=== PATIENT | male | born 1970 | race Caucasian/White ===

== ENCOUNTER 2017-07-03 06:10 | Emergency (ER) | payer BC ==
[~2017-07-03] VITALS: Ht 175.3 cm; Wt 102.4 kg
[~2017-07-03 06:10] MED LIST: ADVIL,NUPRIN,M200 MG PO; ALEVE220 MG PO; ATENOLOL50 MG PO; BACK & BODY PA1 EACH PO; CHERATUSSIN AC473 ML PO; CLONIDINE HCL0.1 MG PO; FERROUS SULFAT324 M1 PO; GOODY S HEADACHE PO; HYDROCODONE; LISINOPRIL20 MG PO; MOTRIN800 MG PO; PANTOPRAZOLE SO40 MG PO; PERCOCET 5/31 TABLET PO; ZITHROMAX Z-PA250 MG PO
[2017-07-03 07:05] LABS: APPEARANCE CLEAR ((CLEAR)); BILIRUBIN NEGATIVE; BLOOD NEGATIVE; COLOR YELLOW ((YELLOW)); GLUCOSE (STRIP) NEGATIVE; KETONES NEGATIVE; LEUKOCYTES NEGATIVE; NITRITE NEGATIVE; PROTEIN (STRIP) NEGATIVE; SPECIFIC GRAVITY 1.021 (1.000-1.030); UCUL ADDED? NO
[2017-07-03 07:36] LABS: HEMATOCRIT 46.7 % (38.0-50.0); HEMOGLOBIN 15.4 G/DL (12.5-16.6); MCH 27.5 PG (29.0-34.0); MCV 83.5 FL (86-99); PLATELET COUNT 223 K/uL (156-360); RBC DIS.WIDTH-CV 14.6 % (11.8-14.6); RBC DIS.WIDTH-SD 44.6 % (39-53); RED BLOOD COUNT 5.59 M/uL (4.00-5.50); WHITE BLOOD COUNT 6.1 K/uL (4.1-10.2)
[2017-07-03] MEDS ORDERED: FLEXERIL10 MG PO (07:46)
[2017-07-03] MEDS ORDERED: MOTRIN800 MG PO (07:46)
[2017-07-03] MEDS ORDERED: LIDODERM 5% P1 PATCH TD (07:46)
[2017-07-03 07:49] LABS: CHLORIDE 105 mEq/L (99-109); POTASSIUM 4.4 mEq/L (3.7-5.4); SODIUM 140 mEq/L (136-147)
[2017-07-03 07:50] LABS: GLUCOSE 122 mg/dL (70-99)
[2017-07-03 07:54] LABS: CREATININE 1.3 mg/dL (0.6-1.3); GFR ESTIMATE (CALCULATED) > 59 mL/min/ (58.99-99999)
[2017-07-03 07:55] LABS: UREA NITROGEN (BUN) 30 mg/dL (9-23)
[2017-07-03 08:15] VITALS: BP 131/94
== END 2017-07-03 08:16 | disposition home or self-care (01) ==
LOC: EME 06:10
DX: S23.3XXA Sprain of ligaments of thoracic spine, initial encounter (principal); I10 Essential (primary) hypertension; Z87.19 Personal history of other diseases of the digestive system
CPT/HCPCS: 72070; 80048; 81003; 85027; 99281; 99284; J1885

== ENCOUNTER 2017-11-03 23:44 | Emergency (ER) | payer BC ==
[~2017-11-03] VITALS: Ht 175.3 cm; Wt 101.3 kg
[~2017-11-03 23:44] MED LIST changes: +FLEXERIL10 MG PO; +LIDODERM 5% P1 PATCH TD
[2017-11-04] MEDS ORDERED: NAPROSYN500 MG PO (02:37)
[2017-11-04] MEDS ORDERED: NORCO 5/3251 TABLET PO (02:37)
[2017-11-04 02:54] VITALS: BP 163/90
== END 2017-11-04 02:55 | disposition home or self-care (01) ==
LOC: EME 23:44
DX: S83.92XA Sprain of unspecified site of left knee, initial encounter (principal); I10 Essential (primary) hypertension; D64.9 Anemia, unspecified; Z87.19 Personal history of other diseases of the digestive system; G43.909 Migraine, unspecified, not intractable, without status migrainosus
CPT/HCPCS: 73564; 99281; 99284

== ENCOUNTER 2018-01-21 23:31 | Emergency (ER) | payer BC ==
[~2018-01-21] VITALS: Ht 175.3 cm; Wt 100.9 kg
[~2018-01-21 23:31] MED LIST changes: +NAPROSYN500 MG PO; +NORCO 5/3251 TABLET PO
[2018-01-22 04:35] VITALS: BP 118/91
== END 2018-01-22 04:45 | disposition home or self-care (01) ==
LOC: EME 23:31
DX: T78.49XA Other allergy, initial encounter (principal); I10 Essential (primary) hypertension; Z87.19 Personal history of other diseases of the digestive system
CPT/HCPCS: 93005; 99281; 99285; J1200; J2930; J7030; S0028